=== PATIENT | female | born 1945 | race Two or more races ===

== ENCOUNTER 2021-01-22 08:19 | Inpatient (IN) | payer OTHER ==
[~2021-01-22] VITALS: Ht 154.9 cm; Wt 75.2 kg
--- NOTE | 2021-01-22 09:05 | NUR ---
Pt presents with L sided AB pain, was seen at [facility] yesterday for the same thing and was told it was gallstones. Pt's family members state that the surgeon gave her a card and told her to come here and be seen in the ER because they are working today. Pt placed on all monitors, EKG done, 2L O2, VSS. Currently resting in bed with family at bedside.
[2021-01-22] MEDS ORDERED: ONDANSETRON 2MG/ML, 2ML ONE ×3 (09:21→12:00)
[2021-01-22] MEDS ORDERED: FAMOTIDINE 20 MG/2 ML ONE (09:21)
[2021-01-22] MEDS ORDERED: ONDANSETRON 2MG/ML, 2ML IVPush ONE (09:30)
[2021-01-22] MEDS ORDERED: SODIUM CHLORIDE 0.9% 1,000ML IVBOLUS ONE (09:30)
[2021-01-22] MEDS ORDERED: FAMOTIDINE 20 MG/2 ML IVPush ONE (09:30)
[2021-01-22] MEDS ORDERED: SODIUM CHLORIDE FLUSH 10ML SYR IVF ONE (09:30)
[2021-01-22] MEDS ORDERED: METF500T17 PO (09:38)
[2021-01-22 10:03] LABS: ALANINE AMINOTRANSFERASE 17 U/L (12-78); ANION GAP 4 mmol/L (5-15); CALCIUM 8.9 mg/dL (8.5-10.1); CHLORIDE 104 mmol/L (98-107); CREATININE 2.02 mg/dL (0.55-1.02)
[2021-01-22 10:04] LABS: ALKALINE PHOSPHATASE 59 U/L (45-117); BILIRUBIN,TOTAL 0.6 mg/dL (0.2-1.0); TOTAL PROTEIN 6.6 g/dL (6.4-8.2)
[2021-01-22 10:12] LABS: BASOPHILS % (AUTO) 1 % (0-1); EOSINOPHILS % (AUTO) 9 % (1-7); LYMPHOCYTES % (AUTO) 32 % (22-44); MD NO; MEAN CORPUSCULAR HEMOGLOBIN 29.4 pg (27.0-34.8); MEAN CORPUSCULAR HGB CONC 33.3 g/dL (32.4-35.8); MEAN PLATELET VOLUME 8.3 fL (7.4-10.4); MONOCYTES % (AUTO) 11 % (2-9); NEUTROPHILS % (AUTO) 48 % (42-75); PLATELET COUNT 275 x10^3/uL (130-400); RED BLOOD COUNT 4.42 x10^6/uL (3.82-5.3); RED CELL DISTRIBUTION WIDTH 16.4 % (9.6-15.2)
--- NOTE | 2021-01-22 10:31 | NUR ---
pt resting in bed with eyes closed, US at bedside
[2021-01-22] MEDS ORDERED: EPINEPHRINE 1 MG/ML, 1ML ONE (11:09)
[2021-01-22] MEDS ORDERED: BUPIVACAINE/PF 0.5% ONE (11:09)
[2021-01-22] MEDS ORDERED: MORPHINE SULFATE 4 MG/ML, 1ML ONE (11:15)
--- NOTE | 2021-01-22 11:29 | NUR ---
Report given to Almaz meyers RN
[2021-01-22] MEDS ORDERED: ONDANSETRON 2MG/ML, 2ML IVPush PRN ×2 (11:30→13:00)
[2021-01-22] MEDS ORDERED: SODIUM CHLORIDE 0.9% 1,000 ML IV ONE (11:30)
[2021-01-22] MEDS ORDERED: MORPHINE SULFATE 4 MG/ML, 1ML IVPush PRN (11:30)
[2021-01-22] MEDS ORDERED: SODIUM CHLORIDE FLUSH 10ML SYR IVF PRN (11:30)
[2021-01-22] MEDS ORDERED: CHLORHEXIDINE 15 ML UDC ONE (11:36)
[2021-01-22] MEDS ORDERED: MIDAZOLAM 1 MG/ML, 2ML ONE (11:43)
[2021-01-22] MEDS ORDERED: FENTANYL PF 250 MCG/5ML ONE (11:44)
--- NOTE | 2021-01-22 11:44 | NUR ---
pt to OR w/ family at bedside
[2021-01-22] MEDS ORDERED: PROPOFOL 10 MG/ML, 20ML ONE (12:00)
[2021-01-22] MEDS ORDERED: ROCURONIUM 10 MG/ML,10ML ONE (12:00)
[2021-01-22] MEDS ORDERED: SUGAMMADEX 200 MG/2 ML IVPush ONE (12:00)
[2021-01-22] MEDS ORDERED: CEFAZOLIN 1,000 MG ONE (12:00)
[2021-01-22] MEDS ORDERED: DEXAMETHASONE 4 MG/ML, 1ML ONE (12:00)
[2021-01-22] MEDS ORDERED: SUCCINYLCHOLINE 20 MG/ML, 10ML ONE (12:00)
[2021-01-22] MEDS ORDERED: MEPERIDINE/PF 25MG/0.5ML IVPush PRN (13:00)
[2021-01-22] MEDS ORDERED: ALBUTEROL SULFATE 2.5 MG/3 ML NPPB PRN (13:00)
[2021-01-22] MEDS ORDERED: KETOROLAC 30 MG/1 ML IV PRN ×2 (13:00→15:00)
[2021-01-22] MEDS ORDERED: FENTANYL PF 100 MCG/2ML IV PRN (13:00)
[2021-01-22] MEDS ORDERED: PROMETHAZINE 25 MG/ML, 1ML IV PRN (13:00)
[2021-01-22] MEDS ORDERED: HYDROmorphone 1 MG/ML, 1ML INJ IV PRN (13:00)
[2021-01-22] MEDS ORDERED: LABETALOL 5MG/ML, 20ML IV PRN (13:00)
[2021-01-22] MEDS ORDERED: hydrALAzine 20 MG/ML, 1ML IV PRN (13:00)
[2021-01-22] MEDS ORDERED: DIAZEPAM 5 MG/ML, 2ML IV PRN ×2 (13:00)
[2021-01-22] MEDS ORDERED: LABETALOL 5MG/ML, 20ML ONE (13:08)
[2021-01-22] MEDS: OXYcodone 5 MG/5 ML ORAL.SOL UDC PO PRN (13:20)
[2021-01-22] MEDS ORDERED: ACETAMINOPHEN 650 MG/20.3 ML UDC ONE (13:21)
[2021-01-22] MEDS ORDERED: FENTANYL PF 100 MCG/2ML ONE (13:22)
[2021-01-22] MEDS ORDERED: OXYcodone 5 MG/5 ML ORAL.SOL UDC ONE (13:22)
[2021-01-22] MEDS ORDERED: hydrALAzine 20 MG/ML, 1ML ONE (13:35)
[2021-01-22 14:31] VITALS: BP 122/64
[2021-01-22] MEDS ORDERED: LORazepam 1MG TABLET PO PRN (15:00)
[2021-01-22] MEDS ORDERED: LORazepam 2 MG/ML, 1ML IV PRN (15:00)
[2021-01-22] MEDS ORDERED: POTASSIUM CHLORIDE 20 MEQ in D5%-0.45% NACL 1,000 ML IV SCH (15:00)
[2021-01-22] MEDS ORDERED: DIPHENHYDRAMINE 50 MG/ML, 1ML IV PRN (15:00)
[2021-01-22] MEDS ORDERED: morphine SULFATE 10 MG/ML, 1ML IV PRN (15:00)
[2021-01-22] MEDS ORDERED: DIPHENHYDRAMINE 25 MG CAPSULE PO PRN (15:00)
[2021-01-22] MEDS ORDERED: OXYcodone/APAP 5/325MG TABLET PO PRN (15:00)
[2021-01-22] MEDS ORDERED: ONDANSETRON 2MG/ML, 2ML IV PRN (15:00)
[2021-01-22 20:24] VITALS: BP 125/73
[2021-01-22] MEDS ORDERED: SODIUM CHLORIDE FLUSH 10ML SYR IVF SCH (21:00)
[2021-01-22 22:58] LABS: MICROSCOPIC AUTO
[2021-01-23 00:12] VITALS: BP 119/54
[2021-01-23] MEDS: OXYcodone 5 MG/5 ML ORAL.SOL UDC PO PRN (02:32)
[2021-01-23 04:18] VITALS: BP 107/65
[2021-01-23 05:02] LABS: BASOPHILS % (AUTO) 1 % (0-1); EOSINOPHILS % (AUTO) 6 % (1-7); LYMPHOCYTES % (AUTO) 20 % (22-44); MEAN CORPUSCULAR HEMOGLOBIN 29.9 pg (27.0-34.8); MEAN CORPUSCULAR HGB CONC 33.2 g/dL (32.4-35.8); MEAN PLATELET VOLUME 8.3 fL (7.4-10.4); MONOCYTES % (AUTO) 13 % (2-9); NEUTROPHILS % (AUTO) 60 % (42-75); PLATELET COUNT 248 x10^3/uL (130-400); RED BLOOD COUNT 3.99 x10^6/uL (3.82-5.3); RED CELL DISTRIBUTION WIDTH 16.6 % (9.6-15.2)
[2021-01-23 05:06] LABS: MD NO
[2021-01-23 05:07] LABS: ALBUMIN 2.5 g/dL (3.4-5.0); ANION GAP 4 mmol/L (5-15); CHLORIDE 110 mmol/L (98-107); CREATININE 1.21 mg/dL (0.55-1.02)
[2021-01-23] MEDS ORDERED: ENOXAPARIN 30 MG/0.3 ML SQ SCH (06:00)
[2021-01-23] MEDS ORDERED: TRAM-47 PO (07:15)
== END 2021-01-23 09:19 | disposition home or self-care (01) | DRG 419 ==
LOC: ED 10:57 → EDIP 11:07 → 4NE 14:14 → DCLOUNGE 01-23 09:12
PROVIDERS: ADMIT Colon & Rectal Surgery; ATTEND Colon & Rectal Surgery
PROC: 0FT44ZZ Resection of Gallbladder, Percutaneous Endoscopic Approach (ICD-10-PCS; principal; 2021-01-23)
DX: K80.10 Calculus of gallbladder with chronic cholecystitis without obstruction (principal); N28.9 Disorder of kidney and ureter, unspecified; Z20.822 Contact with and (suspected) exposure to COVID-19
CPT/HCPCS: 36415; 96361; 96374; 96375; 99285; S0020; 76700; 80048; 80053; 81001; 82040; 83690; 83735; 85025; 87077; 87086; 87635; 88304; 93005; G0378; J0171; J0690; J1100; J1650; J2250; J2405; J2704; J3010; J3480; J0330; J0360; J2270; J7030